=== PATIENT | male | born 1945 | race Caucasian/White ===

== ENCOUNTER → 2024-06-27 | Outpatient (REF) | payer MEDICARE, BC | LOC: US 15:00 | PROVIDERS: ATTEND Internal Medicine | DX: R10.11 Right upper quadrant pain (principal) | CPT/HCPCS: 76705 ==

== ENCOUNTER → 2024-07-07 | Outpatient (REF) | payer MEDICARE, BC | LOC: NM 07:55 | PROVIDERS: ATTEND Internal Medicine | DX: K82.9 Disease of gallbladder, unspecified (principal) | CPT/HCPCS: 78227; A9537 ==